=== PATIENT | female | born 1990 | race African-American/Black ===

== ENCOUNTER 2020-06-05 14:03 | Emergency (ER) | payer SELFPAY ==
[2020-06-05] MEDS ORDERED: ACETAMINOPHEN 325 MG TABLET PO ONE (15:05)
--- NOTE | 2020-06-05 15:09 | ER Document Report ---
ED Medical Screen (RME) - General Chief Complaint: Back Pain Stated Complaint: BACK PAIN Time Seen by Provider: 06/05/20 15:00 Mode of Arrival: Ambulatory Information source: Patient Notes: HPI; 29-year-old female who states she is a 5 para 2 presents to the emergency room complaining of some mid to low back pain. States while she was at work earlier today she went to stretch her back and she felt a "sharp pain" to her back. Patient states she rested pain got a little bit better but she wanted to be seen as she just recently found out she was . Did not take any medications for symptoms. She denies any urinary symptoms. She denies any loss of control of her bowels or bladder. No saddle anesthesia. No red flags. No OB care. PE: Alert and oriented x3. Lungs: Clear to auscultation without rales, rhonchi, wheezes. Heart: Regular rate rhythm without murmurs, rubs, gallops there is mild tenderness on palpation from L4-S1. No step-offs. No obvious deformities palpated. There is no CVA tenderness noted bilaterally. I have greeted and performed a rapid initial assessment of this patient. A comprehensive ED assessment and evaluation of the patient, analysis of test results and completion of the medical decision making process will be conducted by additional ED providers. I have specifically instructed the patient or family members with the patient to immediately return to any nursing staff should anything change in the patient's condition or with their chief complaint. TRAVEL OUTSIDE OF THE [place] IN LAST 30 DAYS: No - Related Data Allergies/Adverse Reactions: No Known Allergies Allergy (Verified 06/05/20 14:58) Physical Exam - Vital signs Vitals: Temp Pulse Resp BP Pulse Ox 98.8 F 81 20 132/72 H 99 06/05/20 14:32 06/05/20 14:32 06/05/20 14:32 06/05/20 14:32 06/05/20 14:32 Course - Vital Signs Vital signs: Temp Pulse Resp BP Pulse Ox 98.8 F 81 20 132/72 H 99 06/05/20 14:32 06/05/20 14:32 06/05/20 14:32 06/05/20 14:32 06/05/20 14:32
--- NOTE | 2020-06-05 16:02 | RADIOLOGY REPORT (SQ) ---
EXAM DESCRIPTION: U/S OB TRANSVAG W/DOPPLER IMAGES COMPLETED DATE/TIME: 06/05/2020 3:46 pm REASON FOR STUDY: cramping COMPARISON: None. TECHNIQUE: Transvaginal static and realtime grayscale images acquired of the pelvis. Additional miki cted spectral and color Doppler images recorded. All images stored on PACs. bHCG: Not available. CLINICAL DATES: LMP 05/01/2020 5 weeks LIMITATIONS: None. FINDINGS: FETUS: Single Living intrauterine . ULTRASOUND EGA: 5 weeks 0 days by gestational sac size. ULTRASOUND ABBY: 02/05/2021 EFW: Not applicable less than 20 weeks. CRL: pole is not yet seen. FHR: pole is not yet seen. SURVEY: Too early to assess. AMNIOTIC FLUID: Adequate amount. PLACENTA: Not yet developed due to early gestation. SUBCHORIONIC BLEED: No SIZE OF BLEED: Not applicable. UTERUS: No masses. No anomalies. CERVICAL LENGTH: 3 cm. Closed. RIGHT ADNEXA: Normal ovary with normal vascular flow. 3 x 3 x 2 cm No adnexal free fluid. No adnexal masses. LEFT ADNEXA: Normal ovary with normal vascular flow. 2 x 2 x 1 cm No adnexal free fluid. No adnexal masses. FREE FLUID: None. OTHER: No other significant finding. IMPRESSION: There appears to be a gestational sac of 5 weeks gestational age within the uterus. Fet al pole is not yet seen. Follow-up as clinically indicated. Trimester of : First trimester - 0 to 13 weeks. TECHNICAL DOCUMENTATION: JOB ID: [id number] [employer]- All Rights Reserved Reading location - IP/workstation name: [email or web address]
[2020-06-05 16:20] LABS: ABSOLUTE BASOPHILS # (AUTO) 0.1 10^3/uL (0.0-0.2); ABSOLUTE LYMPHOCYTES (AUTO) 3.3 10^3/uL (0.5-4.7); ABSOLUTE MONOCYTES (AUTO) 0.7 10^3/uL (0.1-1.4); ABSOLUTE NEUT (AUTO) 5.3 10^3/uL (1.7-8.2); BASOPHILS % (AUTO) 0.8 % (0-2); EOSINOPHILS % (AUTO) 0.4 % (0-6); HEMATOCRIT 37.6 % (36.0-47.0); HEMOGLOBIN 12.1 g/dL (12.0-15.5); LYMPHOCYTES % (AUTO) 35.3 % (13-45); MEAN CORPUSCULAR HEMOGLOBIN 22.3 pg (27.0-33.4); MEAN CORPUSCULAR HGB CONC 32.1 g/dL (32.0-36.0); MEAN CORPUSCULAR VOLUME 69 fl (80-97); MONOCYTES % (AUTO) 7.1 % (3-13); PLATELET COUNT 336 10^3/uL (150-450); RED BLOOD COUNT 5.42 10^6/uL (3.72-5.28); RED CELL DISTRIBUTION WIDTH 14.5 % (11.5-14.0); SEGMENTED NEUTROPHILS % (AUTO) 56.4 % (42-78); TOTAL CELLS COUNTED % (AUTO) 100 %; WHITE BLOOD COUNT 9.4 10^3/uL (4.0-10.5)
[2020-06-05 16:38] LABS: APPEARANCE,URINE CLEAR; BILIRUBIN,URINE NEGATIVE (NEGATIVE); COLOR,URINE YELLOW; GLUCOSE, URINE NEGATIVE (NEGATIVE); KETONES,URINE NEGATIVE (NEGATIVE); LEUKOCYTE ESTERASE,URINE NEGATIVE (NEGATIVE); NITRITE,URINE NEGATIVE (NEGATIVE); PROTEIN,URINE NEGATIVE (NEGATIVE); URINE SPECIFIC GRAVITY 1.025; UROBILINOGEN,URINE NEGATIVE mg/dL (<2.0)
[2020-06-05 16:45] LABS: ALBUMIN 4.2 g/dL (3.5-5.0); ALKALINE PHOSPHATASE 67 U/L (38-126); ANION GAP 7 (5-19); ASPARTATE AMINO TRANSFERASE 28 U/L (14-36); BILIRUBIN,DIRECT 0.1 mg/dL (0.0-0.4); BILIRUBIN,TOTAL 0.4 mg/dL (0.2-1.3); BLOOD UREA NITROGEN 16 mg/dL (7-20); CALCIUM 9.6 mg/dL (8.4-10.2); CARBON DIOXIDE 26 mmol/L (22-30); CHLORIDE 103 mmol/L (98-107); GLUCOSE 91 mg/dL (75-110); POTASSIUM 4.8 mmol/L (3.6-5.0); TOTAL PROTEIN 7.5 g/dL (6.3-8.2)
--- NOTE | 2020-06-05 17:35 | ER Document Report ---
HPI - HPI Patient complains to provider of: back pain Time Seen by Provider: 06/05/20 15:00 Pain Level: 4 Context: 29-year-old female 5 para 2 presents to the emergency room complaining of some mid back pain. States she was at work this morning she went to stretch and she felt a sharp pain to her back. Denies falling or injuring her back. Denies shortness of breath or difficulty breathing. Patient states she had a positive home test last . Denies any vaginal bleeding or discharge. States she started having some lower abdominal cramping today. No OB care. States pain is now is more in her lower back. Denies nausea, vomiting, or urinary symptoms. Denies loss control over bowels or bladder. No saddle anesthesia. No red flags. Associated Symptoms: None Exacerbated by: Movement Relieved by: Remaining still Similar symptoms previously: No Recently seen / treated by doctor: No - ROS Systems Reviewed and Negative: Yes All other systems reviewed and negative - CONSTITUTIONAL Constitutional: DENIES: Fever - NEURO Neurology: DENIES: Headache - GASTROINTESTINAL Gastrointestinal: REPORTS: Abdominal Pain. DENIES: Nausea, Patient vomiting - URINARY Urinary: DENIES: Dysuria, Urgency, Frequency - REPRODUCTIVE LMP: 05/01 Reproductive: REPORTS: : - MUSCULOSKELETAL Musculoskeletal: REPORTS: Back Pain - DERM Skin Color: Normal, [place] Skin Problems: None Past Medical History - General Information source: Patient - Social History Smoking Status: Former Smoker Frequency of alcohol use: Rare Drug Abuse: None Family History: Reviewed & Not Pertinent Vertical Provider Document - CONSTITUTIONAL Agree With Documented VS: Yes Exam Limitations: No Limitations - INFECTION CONTROL TRAVEL OUTSIDE OF THE [place] IN LAST 30 DAYS: No - HEENT HEENT: Atraumatic, Normocephalic - NECK Neck: Normal Inspection, Supple, Thyroid Normal - RESPIRATORY Respiratory: Breath Sounds Normal, No Respiratory Distress, Chest Non-Tender - CARDIOVASCULAR Cardiovascular: Regular Rate, Regular Rhythm, No Murmur - GI/ABDOMEN Gastrointestinal: Abdomen Soft, Abdomen Non-Tender, No Organomegaly, Normal Bowel Sounds - BACK Back: Abnormal Inspection - Mild tenderness in the lower midportion of her back and not over the vertebral spine. No CVA tenderness noted bilaterally. No obvious deformities noted.. negative: CVA Tenderness-Right, CVA Tenderness-Left - MUSCULOSKELETAL/EXTREMETIES Musculoskeletal/Extremeties: FROM - NEURO Level of Consciousness: Awake, Alert, Appropriate Motor/Sensory: No Motor Deficit, No Sensory Deficit - DERM Integumentary: Warm, Dry, No Rash Course - Re-evaluation Re-evalutation: 06/05/20 17:40 Patient is resting comfortably she is pain-free. Ambulatory with a steady gait. Neurovascularly intact. Reviewed all lab and ultrasound reports with patient. Counseled to take Tylenol as needed for pain not to exceed 8 tablets in 24 hours counseled the importance of an outpatient follow-up with [facility] as soon as possible. She will be provided with on-call physician. Patient was given strict return to the emergency room guidelines. Return for any new or worsening symptoms. All questions were answered. Patient verbalized understanding and agrees with plan of care. - Vital Signs Vital signs: Temp Pulse Resp BP Pulse Ox 98.8 F 81 20 132/72 H 99 06/05/20 14:32 06/05/20 14:32 06/05/20 14:32 06/05/20 14:32 06/05/20 14:32 - Laboratory Result Diagrams: 06/05/20 16:00 06/05/20 16:00 Laboratory results interpreted by me: 06/05/20 06/05/20 16:00 16:00 RBC 5.42 H MCV 69 L MCH 22.3 L RDW 14.5 H Sodium 136.2 L Beta HCG, Quant 1429.30 H - Diagnostic Test Radiology reviewed: Reports reviewed Discharge - Discharge Clinical Impression: Intrauterine Back pain Qualifiers: Back pain location: low back pain Chronicity: acute Back pain laterality: midline Sciatica presence: without sciatica Qualified Code(s): M54.5 - Low back pain Condition: Stable Disposition: ELOPED Instructions: Low Back Pain ([facility]), ([facility]) Additional Instructions: Take Tylenol as needed for pain. Follow-up with an [facility] as soon as possible. Return to the emergency room for any new or worsening symptoms. Forms: Return to Work Referrals: ISRRAEL KAYE MD [ACTIVE STAFF] - Follow up as needed
[2020-06-05 17:51] VITALS: BP 129/74
== END 2020-06-05 17:49 | disposition left against medical advice (07) ==
LOC: ER 14:03
DX: O26.91 Pregnancy related conditions, unspecified, first trimester (principal); M54.5 Low back pain; R10.9 Unspecified abdominal pain; Z3A.01 Less than 8 weeks gestation of pregnancy
CPT/HCPCS: 36415; 76817; 80053; 81001; 84702; 85025; 93976; 99284